=== PATIENT | female | born 1940 | race Caucasian/White ===

== ENCOUNTER → 2016-09-05 | Outpatient (CLI) | payer OTHER, MEDICARE ==
[~2016-09-05] MED LIST: ASPI325T39 PO; ATOR10TA88 PO; PROP80TA2 PO
[2016-09-05 11:19] LABS: BASO % 1.1 %; BASO ABS # 0.05 K/uL (0-0.2); COMPLETE YES; EOS % 2.7 %; HEMATOCRIT 39.5 % (37-47); LYMPH % 20.6 %; LYMPH ABS # 0.98 K/uL (1.2-3.4); MEAN CELL VOLUME 96.8 fL (80-100); MEAN CORPUSCULAR HEMOGLOBIN 30.6 pg (25-34); MEAN CORPUSCULAR HGB CONC 31.6 g/dl (32-36); MEAN PLATELET VOLUME 11.4 fL (7.4-10.4); MONO % 10.7 %; NEUT % 64.9 %; PLATELET COUNT 189 K/uL (130-400); RED BLOOD COUNT 4.08 M/uL (4.2-5.4); WHITE BLOOD COUNT 4.75 K/uL (4.8-10.8)
[2016-09-05 11:39] LABS: ALT/SGPT 70 U/L (12-78); AST/SGOT 38 U/L (15-37); BLOOD UREA NITROGEN 17 mg/dl (7-18); BUN/CREATININE RATIO 24.6 (10-20); CALCIUM 9.1 mg/dl (8.5-10.1); CARBON DIOXIDE 31 mmol/L (21-32); CHLORIDE 105 mmol/L (98-107); CHOLESTEROL 174 mg/dl (0-200); CREATININE 0.68 mg/dl (0.60-1.20); GLUCOSE 87 mg/dl (70-99); SODIUM 139 mmol/L (136-145); TRIGLYCERIDES 51 mg/dl (0-150); VERY LOW DENSITY LIPOPROT CALC 10 mg/dl
[2016-09-05 11:47] LABS: ALKALINE PHOSPHATASE 74 U/L (45-117); HDL CHOLESTEROL 89 mg/dl; LDL CHOLESTEROL CALCULATED 75 mg/dl; THYROID STIMULATING HORMONE 0.696 uIu/ml (0.300-4.500)
== END | disposition home or self-care (01) ==
LOC: C.LABBC 07:58
PROVIDERS: ATTEND Internal Medicine
DX: M85.80 Other specified disorders of bone density and structure, unspecified site (principal); A31.0 Pulmonary mycobacterial infection

== ENCOUNTER → 2016-10-07 | Outpatient (CLI) | payer OTHER, MEDICARE ==
--- NOTE | 2016-10-10 08:00 | MAMMOGRAPHY REPORT ---
BILATERAL DIGITAL SCREENING MAMMOGRAM WITH CAD: 10/07/2016 CLINICAL HISTORY: Routine screening. Patient has no complaints. TECHNIQUE: Current study was also evaluated with a Computer Aided Detection (CAD) system. Bilateral CC and MLO views were obtained. COMPARISON: No prior exams were available for comparison. BREAST COMPOSITION: There are scattered areas of fibroglandular density in both breasts. FINDINGS: No suspicious masses, calcifications, or areas of architectural distortion are noted in ei ther breast. There has been no significant interval change compared to prior exams. IMPRESSION: ACR BI-RADS CATEGORY 1: NEGATIVE There is no mammographic evidence of malignancy. A 1 year screening mammogram is recommended. The pa tient will receive written notification of the results. Approximately 10% of breast cancers are not detected with mammography. A negative mammographic report should not delay biopsy if a clinically suggestive mass is present. Yoana Grace M.D. /:10/07/2016 15:15:37 Cultural Anthropology Professor: Aleah NOVAK(Ori)(Fady)(PARMJIT), [facility] letter sent: Normal 1/2 BI-RADS Code: ACR BI-RADS Category 1: Negative
== END | disposition home or self-care (01) ==
LOC: C.MAMM 14:27
PROVIDERS: ATTEND Internal Medicine
DX: Z12.31 Encounter for screening mammogram for malignant neoplasm of breast (principal)

== ENCOUNTER → 2017-09-13 | Outpatient (CLI) | payer OTHER, MEDICARE ==
[~2017-09-13] MED LIST changes: +ATOR10TA82 PO; -ATOR10TA88 PO
--- NOTE | 2017-09-13 08:26 | DIAGNOSTIC IMAGING REPORT ---
CONTRAST UPPER GI SERIES CLINICAL HISTORY: Esophageal dysphagia. COMPARISON STUDY: None. FLUOROSCOPY TIME: 2.8 minutes. 19 fluoroscopic images were obtained. FINDINGS: Esophageal motility was normal. No esophageal mass or stricture was identified. 13 mm barium tablet passed into the stomach. No reflux was elicited. There is a probable small hiatal hernia. Gastric fold pattern is normal. Duodenum was normal. IMPRESSION: 1. No esophageal mass or stricture. 2. Probable small hiatal hernia. Electronically signed by: Mango Taylor M.D. 09/13/2017 8:24 AM Dictated Date/Time: 09/13/2017 8:23 AM
== END | disposition home or self-care (01) ==
LOC: C.RAD 07:43
PROVIDERS: ATTEND Internal Medicine
DX: R13.10 Dysphagia, unspecified (principal)

== ENCOUNTER → 2017-09-18 | Day surgery (SDC) | payer OTHER, MEDICARE ==
[2017-09-15 14:26] VITALS: Ht 154.9 cm; Wt 47.7 kg
[~2017-09-18] VITALS: Ht 154.9 cm; Wt 47.7 kg
[~2017-09-18] MED LIST changes: +LIDOCAINE HCL 2% 2 ML VIAL (20MG/ML) ONE; +PROPOFOL IV EMULSION 10 MG/ML 20 ML VIAL ONE; +SODIUM CHLORIDE 0.9% 500ML 500 ML IV ONE
--- NOTE | 2017-09-18 12:56 | Endo History and Physical ---
History & Physical Date of Service: Sep 18, 2017. Chief Complaint: dysphagia, hiatal hernia Referring Physician: Dr. Rigoberto Joyce History of Present Illness 77 yo CF who presents for EGD secondary to dysphagia and hiatal hernia. Past Medical History High Cholesterol Past Surgical History Hx Cardiac Surgery: No Hx Internal Defibrillator: No Hx Pacemaker: No Hx Abdominal Surgery: Yes (TUBAL LIGATION) Hx of Implantable Prosthesis: No Hx Post-Op Nausea and Vomiting: No Hx Cancer Surgery: No Hx Thoracic Surgery: Yes (LUNG SURGERY (THOUGHT SHE HAD CANCER, FOUND NOTHING)) Hx Orthopedic: No Hx Urinary Tract Surgery: No Family History None Social History Smoking Status: Former Smoker Hx Substance Use: No Hx Alcohol Use: Yes (1 glass wine with dinner) Allergies Coded Allergies: Clindamycin (Verified Allergy, Mild, rash, 09/18/17) Current Medications Reported Home Medications Medications Dose Route/Sig Max Daily Dose Days Date Category Aspirin Ec (Aspirin) 325 Mg Tab 325 Mg PO DAILY PRN 03/17/15 Reported Lipitor (Atorvastatin Calcium) 10 Mg Tab 1 Tab PO QPM 30 03/17/15 Reported Inderal (Propranolol HCl) 80 Mg Tab 80 Mg PO QAM 03/17/15 Reported Vital Signs Weight (Kilograms): 47.73 Height (Feet): 5 Height (Inches): 1 Date Time Temp Pulse Resp B/P (MAP) Pulse Ox O2 Delivery O2 Flow Rate FiO2 09/18/17 12:04 36.4 50 18 159/85 (109) 99 Room Air Physical Exam General Appearance: WD/WN, no apparent distress Respiratory/Chest: Auscultation: breath sounds normal Cardiovascular: Heart Auscultation: RRR Abdomen: Bowel Sounds: normal Inspection & Palpation: soft, non-distended, no tenderness, guarding & rebound Assessment and Plan Assessment: 77 yo CF who presents for EGD secondary to dysphagia and hiatal hernia. Plan: Proceed with EGD.
--- NOTE | 2017-09-18 13:43 | GI REPORT ---
Patient Name: Jovita Chen Procedure Date: 09/18/2017 12:47 PM Date of : 1940 Admit Type: Outpatient Age: 77 Gender: Female Attending MD: Navid Velazquez DO Procedure: Upper GI endoscopy Providers: Navid Velazquez DO Referring MD: Rigoberto Joyce Indications: Dysphagia Medicines: Monitored Anesthesia Care Complications: No immediate complications. Estimated Blood Loss: Estimated blood loss: none. Procedure: Pre-Anesthesia Assessment: - Prior to the procedure, a History and Physical was performed, and patient medications and allergies were reviewed. The patient's tolerance of previous anesthesia was also reviewed. The risks and benefits of the procedure and the sedation options and risks were discussed with the patient. All questions were answered, and informed consent was obtained. Prior Anticoagulants: The patient has taken aspirin, last dose was 1 day prior to procedure. ASA Grade Assessment: III - A patient with severe systemic disease. After reviewing the risks and benefits, the patient was deemed in satisfactory condition to undergo the procedure. After obtaining informed consent, the endoscope was passed under direct vision. Throughout the procedure, the patient's blood pressure, pulse, and oxygen saturations were monitored continuously. The On-site loaner was introduced through the mouth, and advanced to the second part of duodenum. The upper GI endoscopy was accomplished without difficulty. The patient tolerated the procedure well. Findings: A moderate Schatzki ring (acquired) was found at the gastroesophageal junction. A TTS dilator was passed through the scope. Dilation with an 18-19-20 mm balloon dilator was performed to 18 mm and 19 mm. A small hiatal hernia was present. Six non-bleeding cratered gastric ulcers with no stigmata of bleeding were found in the gastric antrum. The largest lesion was 5 mm in largest dimension. Biopsies were taken with a cold forceps for Helicobacter pylori testing. The examined duodenum was normal. Impression: - Moderate Schatzki ring. Dilated. - Small hiatal hernia. - Non-bleeding gastric ulcers with no stigmata of bleeding. Biopsied. - Normal examined duodenum. Recommendation: - Resume previous diet. - Use Protonix (pantoprazole) 40 mg PO daily. - Await pathology results. - Return to primary care physician as previously scheduled. Navid Velazquez DO 09/18/2017 1:42:41 PM This report has been signed electronically. Note Initiated On: 09/18/2017 12:47 PM Number of Addenda: 0 I attest to the content of the Intraoperative Record and orders documented therein, exceptions below {[id number]}
--- NOTE | 2017-09-18 13:46 | Discharge Instructions ---
Endoscopy Patient Instructions Date / Procedure(s) Performed Sep 18, 2017. EGD Allergy Information Coded Allergies: Clindamycin (Verified Allergy, Mild, rash, 09/18/17) Discharge Date / Findings Sep 18, 2017. Schatzki's Ring s/p dilation Hiatal hernia Gastric ulcers s/p biopsies Medication Instructions 1) Start Protonix 40mg by mouth each morning 1/2 hour prior to breakfast. 2) OK to resume all medications today as prescribed Reported Home Medications Medications Dose Route/Sig Max Daily Dose Days Date Category Aspirin Ec (Aspirin) 325 Mg Tab 325 Mg PO DAILY PRN 03/17/15 Reported Lipitor (Atorvastatin Calcium) 10 Mg Tab 1 Tab PO QPM 30 03/17/15 Reported Inderal (Propranolol HCl) 80 Mg Tab 80 Mg PO QAM 03/17/15 Reported Provider Instructions Activity Restrictions - No exercising or heavy lifting for 24 hours. - Do not drink alcohol the day of the procedure. - Do not drive a car or operate machinery until the day after the procedure. - Do not make any important decisions or sign important papers in 24 hours after the procedure. Following Day: - Return to full activity which may include returning to work/school. Diet Start your diet with liquids and light foods (jello, soup, juice, toast). Then eat your usual diet if not nauseated. Treatment For Common After Affects For mild abdominal pain, bloating, or excessive gas: - Rest - Eat lightly - Lie on right side Follow-Up Information Follow-up with Dr. Rigoberto Joyce as scheduled Anesthesia Information What You Should Know You have had a procedure that required some medicine to reduce anxiety and discomfort. This treatment is called moderate sedation. After receiving the treatment, you may be sleepy, but you will be able to breathe on your own. The effects of the treatment may last for several hours. Follow these instructions along with Activity/Diet recommendations noted above: * Do NOT do anything where dizziness or clumsiness would be dangerous. * Rest quietly at home today, then you can be up and about tomorrow. * Have a responsible person stay with you the rest of today. * You may have had an I.V. today. If so, you may take the dressing off later today. Recommendations Call your doctor if: * Trouble breathing * Continuous vomiting for more than 24 hours * Temperature above 101 degrees * Severe abdominal pain or bloating * Pain not relieved by pain medicine ordered * There is increased drainage or redness from any incision * A large amount of rectal bleeding greater than 2-3 tablespoons. (If you had a polyp/s removed or have hemorrhoids, a small amount of blood - from the rectum is to be expected.) * You have any unanswered questions or concerns. IN THE EVENT OF A SERIOUS EMERGENCY, GO TO THE NEAREST EMERGENCY ROOM Your discharge instructions were prepared by provider Navid Velazquez. Patient Instructions Signature Page Jovita Chen Patient (or Guardian) Signature/Date: I have read and understand the instructions given to me by my caregivers. Caregiver/RN/Doctor Signature/Date: The above-named patient and/or guardian has received patient instructions on this date. + Original Patient Signature Page (only) stays with chart. Please make copy for patient.
[2017-09-18 13:54] VITALS: BP 148/77; PULSE 55; O2SAT 100
--- NOTE | 2017-09-18 14:29 | Anesthesiology Progress Note ---
Anesthesia Post Op Note Date & Time Sep 18, 2017 at 14:28 Vital Signs Pain Intensity: 0 Vital Signs Past 12 Hours Date Time Temp Pulse Resp B/P (MAP) Pulse Ox O2 Delivery O2 Flow Rate FiO2 09/18/17 13:54 55 20 148/77 (100) 100 Room Air 09/18/17 13:39 50 18 137/101 (113) 99 Room Air 09/18/17 13:24 52 16 124/47 (72) 100 Room Air 09/18/17 12:04 36.4 50 18 159/85 (109) 99 Room Air Notes Mental Status: alert / awake / arousable, participated in evaluation Pt Amnestic to Procedure: Yes Nausea / Vomiting: adequately controlled Pain: adequately controlled Airway Patency, RR, SpO2: stable & adequate BP & HR: stable & adequate Hydration State: stable & adequate Anesthetic Complications: no major complications apparent
== END | disposition home or self-care (01) ==
LOC: C.GI 11:29
PROVIDERS: ATTEND Internal Medicine
DX: K22.2 Esophageal obstruction (principal); K44.9 Diaphragmatic hernia without obstruction or gangrene; K25.9 Gastric ulcer, unspecified as acute or chronic, without hemorrhage or perforation; K29.50 Unspecified chronic gastritis without bleeding; Z88.1 Allergy status to other antibiotic agents; I48.91 Unspecified atrial fibrillation; Z87.891 Personal history of nicotine dependence; Z79.82 Long term (current) use of aspirin; Z79.899 Other long term (current) drug therapy

== ENCOUNTER 2021-06-27 12:42 | Inpatient (IN) ==
--- NOTE | 2021-06-27 13:27 | Emergency Department Note ---
History of Present Illness General Chief complaint: Head Injury, Minor Stated complaint: FELL STRIKING R SIDE OF HEAD & BACK Time Seen by Provider: 06/27/21 12:51 Source: patient Mode of arrival: ambulatory Limitations: no limitations History of Present Illness Maximum Pain Intensity: 2 This patient is a 81-year-old female who presents to the emergency department for evaluation of a closed head injury. Patient states that she was at her daughter's house for [employer] [place] and tripped over something, causing her to fall backward and hit the back of her head off of a cabinet. She does not believe that she struck her back, but twisted her back while she fell and now has pain in the low back. She did sustain a laceration to the head. She did not lose consciousness. She reports pain primarily in the low back and reports some mild head pain as well. She rates her discomfort a 2/10. She did not take any pain medicine prior to arrival. Patient does not take any anticoagulants. Home Medications Medication Instructions Recorded Confirmed Type aspirin 81 mg chewable tablet 81 mg PO DAILY 11/07/17 05/17/21 History calcium carb 300 mg-D3 800 1 tab PO DAILY 11/07/17 05/17/21 History unit-mag ox 25 mg-[employer] 0.5 mg-emmy-Zn tablet (Caltrate + D3 Plus Minerals) magnesium oxide 400 mg PO HS 11/07/17 05/17/21 History acetaminophen 500 mg capsule 500 mg PO QID PRN 04/16/19 05/17/21 History cholecalciferol (vitamin D3) 25 25 mcg PO DAILY 04/16/19 05/17/21 History mcg (1,000 unit) chewable tablet (Vitamin D3) vitamin B complex 1 tab PO DAILY 10/16/19 05/17/21 History atorvastatin 10 mg tablet See Rx Instructions .ROUTE 11/25/20 05/17/21 Rx .COMPLEX #90 tab pantoprazole 40 mg tablet,delayed See Rx Instructions .ROUTE 12/09/20 05/17/21 Rx release .COMPLEX #90 tab fluticasone propionate 50 1 - 2 spray INTRANASAL DAILY PRN 03/24/21 05/17/21 History mcg/actuation nasal ml spray,suspension sulfamethoxazole 800 1 tab PO BID 5 Days #10 tab 03/24/21 05/17/21 Rx mg-trimethoprim 160 mg tablet (Bactrim DS) lisinopril 20 mg tablet 20 mg PO DAILY #90 tab 04/26/21 05/17/21 Rx propranolol 80 mg capsule,24 See Rx Instructions .ROUTE 05/17/21 05/17/21 Rx hr,extended release .COMPLEX #90 cap oxycodone 5 mg tablet 5 mg PO Q6H PRN #12 tab 06/27/21 Rx Allergies Allergy/AdvReac Type Severity Reaction Status Date / Time clindamycin Allergy Unknown Verified 05/17/21 10:22 prednisone Allergy Unknown Verified 05/17/21 10:22 Past Med/Surg History Medical History (Updated 06/27/21 @ 16:32 by Elizabeth Lagunas PA-C) Gastric ulcer GERD (gastroesophageal reflux disease) Hyperlipidemia L1 vertebral fracture L5 vertebral fracture Mitral valve prolapse REASON FOR PROPRANOLOL Osteopenia after menopause Peptic ulcer disease PSVT (paroxysmal supraventricular tachycardia) Schatzki's ring Sensorineural hearing loss of both ears Thyroid nodule Surgical History History of bilateral tubal ligation History of bronchoscopy History of cataract surgery History of colonoscopy History of esophagogastroduodenoscopy (EGD) History of tooth extraction Family History Brother Family history of diabetes mellitus Mother Heart disease Father Heart disease Other Hypertension No family history of allergies No family history of bleeding disorder Denies family history of Hearing loss Cancer Stroke Asthma Social History Smoking Status: Never smoker Tobacco Type: Cigarettes Age Started Using Tobacco: 20; Age Quit Using Tobacco: 57; packs per day: 0.25; Years Smoked: 37; Number of Years Since Quit: 20; Second Hand Exposure: No; Hx Alcohol Use: Yes Alcohol type: wine Alcohol Intake Frequency Comment: 4 oz a day with dinner Hx Substance Use: No Preferred Language: Italian Communication Ability: Effective Visual Impairment: Limited Hearing Ability: Normal [employer] Member Required: No Beliefs That Will Affect Care: None marital status: Current Living Situation: Spouse current occupational status: retired How many Children do You have: 2 Feels Safe at Home: Yes Childhood Exposure to Second-Hand Smoke: Yes caffeine: Yes (tea) Dental Care, Regularly: Yes Physical Activity Frequency: Daily Physical Activity Frequency Comment: walk Seatbelt Use: always Sunscreen Use: Yes Assistive Devices: Glasses Review of Systems A total of 10 systems reviewed and were otherwise negative Physical Exam Vital Signs Vital Signs - 24 hr 06/27/21 12:46 06/27/21 15:44 Temperature 36.5 C Temperature Source Temporal Artery Scan Pulse Rate 52 L Pulse Rate [Apical] 50 L Pulse Rhythm [Apical] Regular Respiratory Rate 16 16 Respiratory Depth Normal Blood Pressure 200/74 H Blood Pressure [Left Arm] 188/78 H Blood Pressure Mean 116 Blood Pressure Mean [Left Arm] 114 Pulse Oximetry 96 99 Oxygen Delivery Method Room Air Sepsis Recent Fever Within 48 Hours No Sepsis New/Unexplained Change in Mental Status No Sepsis Action Taken by Nursing No Action Required VITALS: Vitals are noted on the nurse's note and reviewed by myself GENERAL: This is a 81-year-old, in no acute distress, well-developed well- nourished. SKIN: There is a 4 cm linear laceration to the posterior scalp. No active bleeding. HEAD: Normocephalic atraumatic. EARS: External auditory canals clear, tympanic membranes pearly reeves without erythema or effusion bilaterally. No hemotympanum. EYES: Pupils equal round and reactive to light and accommodation. Extraocular movements intact. MOUTH: Mucous membranes moist. Tonsils are not enlarged. Pharynx without erythema or exudate. NECK: Supple without nuchal rigidity. Cervical spine is nontender. HEART: Regular rate and rhythm without murmurs gallops or rubs. LUNGS: Clear to auscultation bilaterally without wheezes, rales or rhonchi. MUSCULOSKELETAL: Mild tenderness to palpation across the lower back. Full range of motion throughout. Strength 5/5 throughout. NEURO: Patient was alert and oriented to person place and time. No focal neurological deficits. Procedures Laceration Scalp laceration: Site: scalp Size (cm): 4 Description: linear Depth: simple, single layer Local Anesthetic: lidocaine 1% Amount of anesthesia used (mL): 5 Pre-repair: wound explored and irrigated extensively Skin layer closed with: other (america) Number of sutures: 4 Course Consultations Consultation #1: Dr. Singh - orthopedic spine Administered Medications Discontinued Medications Lidocaine HCl (Xylocaine 1%/Sod Bicarb 20 Ml Vial) 20 ml INFIL NOW ONE Stop: 06/27/21 13:53 Last Admin: 06/27/21 14:08 Dose: 20 ml Documented by: [id number] Oxycodone HCl (Oxycodone Hcl Ir 5 Mg Tab (Immediate Release)) 5 mg PO NOW STA Stop: 06/27/21 14:14 Last Admin: 06/27/21 14:25 Dose: 5 mg Documented by: [id number] Oxycodone HCl (Oxycodone Ir Home Pack) 1 homepack PO UD ONE Stop: 06/27/21 15:28 Last Admin: 06/27/21 15:43 Dose: Not Given Documented by: [id number] Medical Decision Making Differential Diagnosis Concussion, contusion, fracture, subdural hematoma, epidural hematoma, intraparenchymal hemorrhage, lumbar fracture, as well as other pathologies. Home Medications Current Medication List: was personally reviewed by me Laboratory Data Attestation: I reviewed the patient's lab results. Lab Results 06/27/21 Range/Units 15:45 SARS-CoV-2, RNA, NAAT NEGATIVE (NEGATIVE) Imaging Data Attestation: I personally reviewed and interpreted this imaging study as follows: Radiologist's Impression: Cervical Spine CT 06/27/21 13:00 CT OF THE CERVICAL SPINE WITHOUT CONTRAST CLINICAL HISTORY: fall, head injury COMPARISON STUDY: No previous studies for comparison. TECHNIQUE: Helical axial images of the cervical spine were obtained without IV contrast. Sagittal and coronal reconstructions were viewed. Automated exposure control was utilized for the study. A dose lowering technique was utilized adhering to the principles of ALARA. FINDINGS: Alignment of the cervical spine is anatomic. Vertebral body heights are maintained. No acute cervical spine fracture or subluxation is present. There is no prevertebral edema. Facet joints are intact. Moderate multilevel disc space narrowing, osteophytosis and facet arthrosis is present. Multinodular thyroid gland is noted. This was shown on ultrasound of April 18, 2019. IMPRESSION: No acute cervical spine fracture or subluxation. ACT 112: Negative or not required by law. Electronically signed by: Mango Taylor M.D. 06/27/2021 1:[address] 06/27/21 13:00 CT OF THE HEAD WITHOUT CONTRAST CLINICAL HISTORY: fall, head injury COMPARISON STUDY: No previous studies for comparison. TECHNIQUE: Helical axial images of the head were obtained without IV contrast. Automated exposure control was utilized for the study. A dose lowering technique was utilized adhering to the principles of ALARA. FINDINGS: No acute intracranial hemorrhage, midline shift or mass effect is present. White matter hypodensity suggests small vessel disease. The ventricular system is unremarkable. The basal cisterns are patent. No extra-axial collections are present. There are no findings to suggest acute dural sinus thrombosis or acute territorial infarct. No significant calvarial abnormalities are present. Visualized portions of the sinuses and mastoid air cells are clear. Small left posterior scalp contusion is present. IMPRESSION: 1. No acute intracranial findings. 2. Small left posterior scalp contusion. No calvarial fracture. ACT 112: Negative or not required by law. Electronically signed by: Mango Taylor M.D. 06/27/2021 1:[address] 06/27/21 13:00 CT OF THE LUMBAR SPINE CLINICAL HISTORY: fall, low back pain COMPARISON STUDY: CT of the abdomen and pelvis September 07, 2018. TECHNIQUE: Helical axial images of the lumbar spine were obtained. Sagittal and coronal reconstructions were viewed. Automated exposure control was utilized for the study. A dose lowering technique was utilized adhering to the principles of ALARA. FINDINGS: For purposes of numbering on this exam, the L5-S1 disc space is assigned to axial image 315 of 378. There is an acute fracture involving the superior endplate of L1. There is 20% loss of vertebral body height with 2 mm of retropulsion at the level of the superior endplate. This may technically reflect a subtle burst fracture given disruption of the posterior cortex. Otherwise, vertebral body heights are maintained. There is an age indeterminate nondisplaced fracture of the left transverse process of L5. This has apparent sclerotic margins. Mild levoscoliosis of the lumbar spine is present. Severe multilevel facet arthrosis and severe multilevel disc space narrowing and osteophytosis is present. Central canal and neural foramen are suboptimally assessed by CT. Paravertebral soft tissues are unremarkable. Hepatic cyst is incidentally noted. IMPRESSION: 1. Acute L1 vertebral body fracture, as described above. 20% loss of vertebral body height with minimal retropulsion. Technically, this favors a subtle burst fracture given disruption of the posterior cortex. 2. Nondisplaced fracture of the left transverse processes of L5. This is acute to subacute. ACT 112: Negative or not required by law. Electronically signed by: Mango Taylor M.D. 06/27/2021 1:55 PM MDM Narrative This patient is a 81-year-old female who presents to the emergency department for evaluation of a fall. Patient did sustain a head injury with scalp laceration. CT of the head and cervical spine were unremarkable. Scalp laceration repaired as noted in the procedure section. Patient additionally noted to have low back pain. Lumbar CT was performed and did show an L1 vertebral body fracture as well as an L5 transverse process fracture. I did speak with Dr. Singh who felt this would not be surgical and recommended follow-up for bracing. Patient given a dose of oxycodone here. An ambulatory trial was performed with a walker, unfortunately patient was unable to get around and was not comfortable taking her home. For this reason, patient will require admission and likely eventual placement at a rehabilitation facility. [facility] was consulted and agreed to evaluate the patient for further care. Impression & Plan L1 vertebral fracture, L5 vertebral fracture, Closed head injury, Laceration of scalp Discharge Plan Visit Data Chief Complaint: Head Injury, Minor Stated Complaint: FELL STRIKING R SIDE OF HEAD & BACK ED Provider: Nick Otero ED Midlevel Provider: Elizabeth Lagunas Discharge Problem: L1 vertebral fracture, L5 vertebral fracture, Closed head injury, Laceration of scalp Patient Disposition: Home - Self-Care Condition: Good Discharge Instructions Activity Restrictions/Additional Instructions: You have received 4 america on your scalp. These america are NOT dissolvable and WILL need to be removed by a health care provider in 7-10 days. You can return to the Emergency Department or contact your Primary Care Provider to have these america removed. You may wash the area normally. Apply a thin layer of antibiotic ointment or Vaseline over the america once daily. You were diagnosed with a fracture in your lumbar spine/low back. We discussed the case with Dr. Singh, the local behavior specialist. He will follow-up with you this week. Please call their office tomorrow morning and let them know that you were seen in the ER and that we talked with Dr. Singh. You have been prescribed Oxy IR to be used for pain control. Take 1 tablet ev delio 6 hours as needed for pain. This is a narcotic medication. You cannot drive or consume alcohol while on this medicine. This medicine should only be used for pain that cannot be controlled with elyx-jml-[id number] pain medicines. You may want to consider taking an over the counter stool softener while taking this medication, as it may cause constipation. For pain control, you can use the following eyhy-lul-shxsovg medicines (if >12 yo): - Regular strength (325mg/tab) Tylenol (acetaminophen) 2 tabs every 4-6 hours as needed. Do not exceed 12 tablets in a 24 hour period. Avoid taking more than 4 grams (4000 mg) of Tylenol per day. This includes any other sources of acetaminophen you may take on a regular basis. Return to the emergency department with worsening pain, inability to get around at home, or other new/concerning symptoms. Forms Stand Alone Forms: [facility], Virtual Emergency Department, Important Visit Information Prescriptions Prescriptions: New oxycodone 5 mg tablet 5 mg PO Q6H PRN (Reason: pain) Qty: 12 RF: 0 No Action atorvastatin 10 mg tablet See Rx Instructions .ROUTE .COMPLEX Qty: 90 RF: 3 pantoprazole 40 mg tablet,delayed release (DR/EC) See Rx Instructions .ROUTE .COMPLEX Qty: 90 RF: 3 lisinopril 20 mg tablet 20 mg PO DAILY Qty: 90 RF: 3 propranolol 80 mg capsule,extended release 24 hr See Rx Instructions .ROUTE .COMPLEX Qty: 90 RF: 3 acetaminophen 500 mg capsule 500 mg PO QID PRNRF: 0 cholecalciferol (vitamin D3) [Vitamin D3] 25 mcg (1,000 unit) tablet,chewable 25 mcg PO DAILY RF: 0 Tenivac (PF) 5-2 Lf unit/0.5 mL syringe 0.5 ml IM ONCE Qty: 0.5 RF: 0 vitamin B complex Tablet 1 tab PO DAILY RF: 0 fluticasone propionate 50 mcg/actuation spray,suspension 1 - 2 spray intranasal DAILY PRNRF: 0 sulfamethoxazole-trimethoprim [Bactrim DS] 800-160 mg tablet 1 tab PO BID 5 Days Qty: 10 RF: 0 aspirin 81 mg Tablet,Chewable 81 mg PO DAILY RF: 0 magnesium oxide 400 mg Capsule 400 mg PO HS RF: 0 Caltrate + D3 Plus Minerals 300 mg-800 unit -25 mg-0.5 mg Tablet 1 tab PO DAILY RF: 0 Referrals Referrals: Rigoberto Joyce MD [Primary Care Provider] - Palmer Singh DO [Surgeon] - Discharge Problem: L1 vertebral fracture Qualifiers: Encounter type: initial encounter Fracture type: closed Fracture morphology: burst- stable Qualified Code(s): S32.011A - Stable burst fracture of first lumbar vertebra, initial encounter for closed fracture L5 vertebral fracture Qualifiers: Encounter type: initial encounter Fracture type: closed Fracture morphology: other fracture Qualified Code(s): S32.058A - Other fracture of fifth lumbar vertebra, initial encounter for closed fracture Closed head injury Qualifiers: Encounter type: initial encounter Qualified Code(s): S09.90XA - Unspecified injury of head, initial encounter Laceration of scalp Qualifiers: Encounter type: initial encounter Qualified Code(s): S01.01XA - Laceration without foreign body of scalp, initial encounter
--- NOTE | 2021-06-27 13:41 | CT Scan Report ---
CT OF THE HEAD WITHOUT CONTRAST CLINICAL HISTORY: fall, head injury COMPARISON STUDY: No previous studies for comparison. TECHNIQUE: Helical axial images of the head were obtained without IV contrast. Automated exposure con trol was utilized for the study. A dose lowering technique was utilized adhering to the principles o f ALARA. FINDINGS: No acute intracranial hemorrhage, midline shift or mass effect is present. White matter hyp odensity suggests small vessel disease. The ventricular system is unremarkable. The basal cisterns ar e patent. No extra-axial collections are present. There are no findings to suggest acute dural sinus thrombosis or acute territorial infarct. No significant calvarial abnormalities are present. Visualiz ed portions of the sinuses and mastoid air cells are clear. Small left posterior scalp contusion is p resent. IMPRESSION: 1. No acute intracranial findings. 2. Small left posterior scalp contusion. No calvarial fracture. ACT 112: Negative or not required by law. Electronically signed by: Mango Taylor M.D. 06/27/2021 1:40 PM
--- NOTE | 2021-06-27 13:46 | CT Scan Report ---
CT OF THE CERVICAL SPINE WITHOUT CONTRAST CLINICAL HISTORY: fall, head injury COMPARISON STUDY: No previous studies for comparison. TECHNIQUE: Helical axial images of the cervical spine were obtained without IV contrast. Sagittal a nd coronal reconstructions were viewed. Automated exposure control was utilized for the study. A do se lowering technique was utilized adhering to the principles of ALARA. FINDINGS: Alignment of the cervical spine is anatomic. Vertebral body heights are maintained. No acut e cervical spine fracture or subluxation is present. There is no prevertebral edema. Facet joints are intact. Moderate multilevel disc space narrowing, osteophytosis and facet arthrosis is present. Mul tinodular thyroid gland is noted. This was shown on ultrasound of April 18, 2019. IMPRESSION: No acute cervical spine fracture or subluxation. ACT 112: Negative or not required by law. Electronically signed by: Mango Taylor M.D. 06/27/2021 1:43 PM
[2021-06-27] MEDS ORDERED: XYLOCAINE 1%/SOD BICARB 20 ML VIAL INFIL ONE (13:52)
--- NOTE | 2021-06-27 13:57 | CT Scan Report ---
CT OF THE LUMBAR SPINE CLINICAL HISTORY: fall, low back pain COMPARISON STUDY: CT of the abdomen and pelvis September 07, 2018. TECHNIQUE: Helical axial images of the lumbar spine were obtained. Sagittal and coronal reconstruct ions were viewed. Automated exposure control was utilized for the study. A dose lowering technique was utilized adhering to the principles of ALARA. FINDINGS: For purposes of numbering on this exam, the L5-S1 disc space is assigned to axial image 315 of 378. There is an acute fracture involving the superior endplate of L1. There is 20% loss of verte bral body height with 2 mm of retropulsion at the level of the superior endplate. This may technicall y reflect a subtle burst fracture given disruption of the posterior cortex. Otherwise, vertebral body heights are maintained. There is an age indeterminate nondisplaced fracture of the left transverse p rocess of L5. This has apparent sclerotic margins. Mild levoscoliosis of the lumbar spine is present. Severe multilevel facet arthrosis and severe multilevel disc space narrowing and osteophytosis is pr esent. Central canal and neural foramen are suboptimally assessed by CT. Paravertebral soft tissues a re unremarkable. Hepatic cyst is incidentally noted. IMPRESSION: 1. Acute L1 vertebral body fracture, as described above. 20% loss of vertebral body height with minim al retropulsion. Technically, this favors a subtle burst fracture given disruption of the posterior c ortex. 2. Nondisplaced fracture of the left transverse processes of L5. This is acute to subacute. ACT 112: Negative or not required by law. Electronically signed by: Mango Taylor M.D. 06/27/2021 1:55 PM
[2021-06-27] MEDS ORDERED: oxyCODONE HCL IR 5 MG TAB (IMMEDIATE RELEASE) PO STA (14:13)
--- NOTE | 2021-06-27 14:53 | Emergency Department Note ---
ED Visit Note Physician Evaluation Note: I have personally evaluated and examined this patient. I agree with assessment and plan of Elizabeth Lagunas PA-C. 81-year-old female slipped and fell while at [employer] this morning. Mechanical in nature. Head injury already closed with america by [employer]. Imaging reviewed reveals lumbar fractures. Patient stable no neurologic deficits and main complaint is discomfort with movement. Plan will be pain control and see how she manages. [facility] already aware and will follow-up as outpatient. I was consulted by the Advanced Practice Provider. I saw the patient personally and performed a substantive portion of the visit. This includes aspects of the HPI, MDM, diagnostic interpretations, and disposition/plan. Nick Otero MD
[2021-06-27] MEDS ORDERED: oxyCODONE IR HOME PACK PO ONE (15:27)
--- NOTE | 2021-06-27 15:56 | History & Physical Report ---
Date of Service June 27, 2021 Assessment & Plan (1) Fall: Plan: Mechanical fall while tripping over a step Resulted in laceration to posterior occiput and L1 vertebral burst fracture and L5 transverse process fracture PT/OT consults placed (2) L1 vertebral fracture: Plan: With L1 vertebral burst fracture with 20% loss of height and mild retropulsion This is a pathologic osteoporotic fracture due to fall from standing height No focal neurological deficits Consult orthopedic spine surgery although most likely conservative care Consult orthotics for TLSO brace Continue oxycodone 5 mg p.o. every 4 hours as needed moderate to severe pain, Tylenol as needed for mild pain Start lidocaine patch to the lower back PT/OT consults Recommend DEXA scan if not done recently as an outpatient and appropriate treatment for osteoporosis as needed (3) L5 vertebral fracture: Plan: Left transverse process fracture, age-indeterminate Conservative management Pain control (4) Laceration of head: Plan: Now status post [address] Consult wound care Will need staple removal in 5 to 7 days Keep area clean (5) Osteopenia after menopause: Plan: Continue calcium and vitamin D (6) Hypertension: Plan: Blood pressure is quite elevated here likely secondary to pain response Asymptomatic Control pain Can give IV hydralazine 5 mg IV every 6 hours as needed SBP greater than 180 Continue home lisinopril and propranolol (7) PSVT (paroxysmal supraventricular tachycardia): Plan: No acute issues Continue home propranolol (8) Thyroid nodule: Plan: Followed by PCP, most recent TSH normal Follow as an outpatient (9) GERD (gastroesophageal reflux disease): Plan: No acute issues Continue Protonix (10) Hyperlipidemia: Plan: Continue atorvastatin Plan: DVT prophylaxis-SCDs Disposition-admit to medical/surgical unit PT/OT consults placed, may need rehab placement if unable to ambulate independently History of Present Illness Chief Complaint: Fall, head lac,lower back pain Primary Care Provider: Rigoberto Joyce MD This pt is a 81 yo female with a h/o HTN, PSVT, GERD w/ Schatzki's ring, HL, osteopenia, thyroid nodules, who presents to the ER after falling and sustaining a laceration to her head and having lower back pain. SHe was at her daughter's house for Mother's Day clara and tripped while stepping up a small ledge from the dining room to the kitchen and fell, striking her head on a cabinet and she twisted her back prior to landing on the floor. In the ER, she was found to have a lac to the back of her head which was stapled x4, neg head CT and Cervical spine CT, but had a burst fracture of L1 with 20% loss of height and mild retropulsion and a left transverse process fracture of L5. Dr. Singh of [facility] was contacted who said no surgical intervention was needed, and that outpt f/u for back brace could be arranged. However, the patient was attempting to ambulate and her did not feel she would be safe to return home. She received a dose of oxycodone in the ER and after about an hour felt some improv ement in her lower back pain. She denies chest pains or shortness of breath, no other pains anywhere else, only occasional mild intermittent headache. Had some nausea with standing up to go to the bathroom but that is now resolved. No abdominal pains. No recent fevers or chills. She will be brought in for pain control, eval by Orthopedic Surgery and fitted for a TLSO brace with orthotics. Also will need eval for placement at rehab by PT/OT. Allergies Allergy/AdvReac Type Severity Reaction Status Date / Time clindamycin Allergy Unknown Verified 05/17/21 10:22 prednisone Allergy Unknown Verified 05/17/21 10:22 Home Medications Medication Instructions Recorded Confirmed Type aspirin 81 mg chewable tablet 81 mg PO DAILY 11/07/17 05/17/21 History calcium carb 300 mg-D3 800 1 tab PO DAILY 11/07/17 05/17/21 History unit-mag ox 25 mg-copy room technician 0.5 mg-emmy-Zn tablet (Caltrate + D3 Plus Minerals) magnesium oxide 400 mg PO HS 11/07/17 05/17/21 History acetaminophen 500 mg capsule 500 mg PO QID PRN 04/16/19 05/17/21 History cholecalciferol (vitamin D3) 25 25 mcg PO DAILY 04/16/19 05/17/21 History mcg (1,000 unit) chewable tablet (Vitamin D3) vitamin B complex 1 tab PO DAILY 10/16/19 05/17/21 History atorvastatin 10 mg tablet See Rx Instructions .ROUTE 11/25/20 05/17/21 Rx .COMPLEX #90 tab pantoprazole 40 mg tablet,delayed See Rx Instructions .ROUTE 12/09/20 05/17/21 Rx release .COMPLEX #90 tab fluticasone propionate 50 1 - 2 spray INTRANASAL DAILY PRN 03/24/21 05/17/21 History mcg/actuation nasal ml spray,suspension sulfamethoxazole 800 1 tab PO BID 5 Days #10 tab 03/24/21 05/17/21 Rx mg-trimethoprim 160 mg tablet (Bactrim DS) lisinopril 20 mg tablet 20 mg PO DAILY #90 tab 04/26/21 05/17/21 Rx propranolol 80 mg capsule,24 See Rx Instructions .ROUTE 05/17/21 05/17/21 Rx hr,extended release .COMPLEX #90 cap oxycodone 5 mg tablet 5 mg PO Q6H PRN #12 tab 06/27/21 Rx Past Med/Surg History Medical History (Updated 06/27/21 @ 16:32 by Elizabeth Lagunas PA-C) Gastric ulcer GERD (gastroesophageal reflux disease) Hyperlipidemia L1 vertebral fracture L5 vertebral fracture Mitral valve prolapse REASON FOR PROPRANOLOL Osteopenia after menopause Peptic ulcer disease PSVT (paroxysmal supraventricular tachycardia) Schatzki's ring Sensorineural hearing loss of both ears Thyroid nodule Surgical History History of bilateral tubal ligation History of bronchoscopy History of cataract surgery History of colonoscopy History of esophagogastroduodenoscopy (EGD) History of tooth extraction Family History Brother Family history of diabetes mellitus Mother Heart disease Father Heart disease Other Hypertension No family history of allergies No family history of bleeding disorder Denies family history of Hearing loss Cancer Stroke Asthma Social History Smoking Status: Never smoker Tobacco Type: Cigarettes Age Started Using Tobacco: 20; Age Quit Using Tobacco: 57; packs per day: 0.25; Years Smoked: 37; Number of Years Since Quit: 20; Second Hand Exposure: No; Hx Alcohol Use: Yes Alcohol type: wine Alcohol Intake Frequency Comment: 4 oz a day with dinner Hx Substance Use: No Preferred Language: Croatian Communication Ability: Effective Visual Impairment: Limited Hearing Ability: Normal Brand Protection Manager Required: No Beliefs That Will Affect Care: None marital status: Current Living Situation: Spouse current occupational status: retired How many Children do You have: 2 Other Information That Helps Us Care for You: No Feels Safe at Home: Yes Childhood Exposure to Second-Hand Smoke: Yes caffeine: Yes (tea) Dental Care, Regularly: Yes Physical Activity Frequency: Daily Physical Activity Frequency Comment: walk Seatbelt Use: always Sunscreen Use: Yes Assistive Devices: None Review of Systems Review of Systems: All systems reviewed & are unremarkable except as noted in HPI & below Physical Exam Constitutional: WD/WN, vitals as above Eyes: PERRL, conjunctivae normal, anicteric sclerae EOM intact bilaterally ENMT: external ear and nose normal, oropharynx normal Ears: no EAC abnormality and no TM abnormality Nose: no external nose abnormality, no septum abnormality and no nasal discharge Posterior occiput with small vertical laceration with [address], no active bleeding Neck: trachea midline, no thyromegaly Respiratory: normal respiratory effort, lungs clear to auscultation Cardiovascular: RRR, no murmur, no edema Chest (Breasts): Chest: normal inspection of chest Gastrointestinal (Abdomen): normal bowel sounds, soft, nontender, no hepatosplenomegaly Musculoskeletal: Extremities: extremities normal to inspection; no cyanosis and no clubbing No tenderness to palpation over lumbar spinous processes or lumbar paraspinous muscles Skin: no rashes, warm and dry (1 small abrasion over left knee) Neurologic: PERRL, EOMI, accommodation nl, no face palsy, no dysarthria moves all extremities and awake; no focal motor deficits Motor/Sensory: no tremor and no sensory deficit (Intact lower extremity light touch bilaterally) Psychiatric: A+Ox3, euthymic affect Lymphatic: no lymphedema Results & Data Results & Data ([facility]) Vital Signs (Past 12 Hours) Vital Signs Temp Pulse Pulse Resp BP BP Pulse Ox 06/27/21 15:44 50 L 16 188/78 H 99 06/27/21 12:46 36.5 C 52 L 16 200/74 H 96 Laboratory Results 06/27/21 Range/Units 15:45 SARS-CoV-2, RNA, NAAT Pending Diagnostic Findings Cervical Spine CT 06/27/21 13:00 CT OF THE CERVICAL SPINE WITHOUT CONTRAST CLINICAL HISTORY: fall, head injury COMPARISON STUDY: No previous studies for comparison. TECHNIQUE: Helical axial images of the cervical spine were obtained without IV contrast. Sagittal and coronal reconstructions were viewed. Automated exposure control was utilized for the study. A dose lowering technique was utilized adhering to the principles of ALARA. FINDINGS: Alignment of the cervical spine is anatomic. Vertebral body heights are maintained. No acute cervical spine fracture or subluxation is present. There is no prevertebral edema. Facet joints are intact. Moderate multilevel disc space narrowing, osteophytosis and facet arthrosis is present. Multinodular thyroid gland is noted. This was shown on ultrasound of April 18, 2019. IMPRESSION: No acute cervical spine fracture or subluxation. ACT 112: Negative or not required by law. Electronically signed by: Mango Taylor M.D. 06/27/2021 1:[address] 06/27/21 13:00 CT OF THE HEAD WITHOUT CONTRAST CLINICAL HISTORY: fall, head injury COMPARISON STUDY: No previous studies for comparison. TECHNIQUE: Helical axial images of the head were obtained without IV contrast. Automated exposure control was utilized for the study. A dose lowering techniq ue was utilized adhering to the principles of ALARA. FINDINGS: No acute intracranial hemorrhage, midline shift or mass effect is present. White matter hypodensity suggests small vessel disease. The ventricular system is unremarkable. The basal cisterns are patent. No extra-axial collections are present. There are no findings to suggest acute dural sinus thrombosis or acute territorial infarct. No significant calvarial abnormalities are present. Visualized portions of the sinuses and mastoid air cells are clear. Small left posterior scalp contusion is present. IMPRESSION: 1. No acute intracranial findings. 2. Small left posterior scalp contusion. No calvarial fracture. ACT 112: Negative or not required by law. Electronically signed by: Mango Taylor M.D. 06/27/2021 1:[address] 06/27/21 13:00 CT OF THE LUMBAR SPINE CLINICAL HISTORY: fall, low back pain COMPARISON STUDY: CT of the abdomen and pelvis September 07, 2018. TECHNIQUE: Helical axial images of the lumbar spine were obtained. Sagittal and coronal reconstructions were viewed. Automated exposure control was utilized for the study. A dose lowering technique was utilized adhering to the principles of ALARA. FINDINGS: For purposes of numbering on this exam, the L5-S1 disc space is assigned to axial image 315 of 378. There is an acute fracture involving the superior endplate of L1. There is 20% loss of vertebral body height with 2 mm of retropulsion at the level of the superior endplate. This may technically reflect a subtle burst fracture given disruption of the posterior cortex. Otherwise, vertebral body heights are maintained. There is an age indeterminate nondisplaced fracture of the left transverse process of L5. This has apparent sclerotic margins. Mild levoscoliosis of the lumbar spine is present. Severe multilevel facet arthrosis and severe multilevel disc space narrowing and osteophytosis is present. Central canal and neural foramen are suboptimally assessed by CT. Paravertebral soft tissues are unremarkable. Hepatic cyst is incidentally noted. IMPRESSION: 1. Acute L1 vertebral body fracture, as described above. 20% loss of vertebral body height with minimal retropulsion. Technically, this favors a subtle burst fracture given disruption of the posterior cortex. 2. Nondisplaced fracture of the left transverse processes of L5. This is acute to subacute. ACT 112: Negative or not required by law. Electronically signed by: Mango Taylor M.D. 06/27/2021 1:55 PM Code Status & VTE Plan Code Status Full code VTE Prophylaxis Plan VTE Prophylaxis will be ordered: Yes PG Care Time/CCT Total # of Minutes Spent Total Time Spent with Patient: Total time spent is greater than 50% in coordination of care (as documented) at patient's floor/unit and/or counseling patient: Coding Level of Care Code 00824 Initial Inpt Care Lvl 3 Diagnoses Hypertension I10 PSVT (paroxysmal supraventricular tachycardia) I47.1 Thyroid nodule E04.1 GERD (gastroesophageal reflux disease) K21.9 Hyperlipidemia E78.5 Osteopenia after menopause M85.80 L1 vertebral fracture S32.019A L5 vertebral fracture S32.059A Laceration of head S01.91XA Fall W19.XXXA
[2021-06-27 16:29] LABS: Hematocrit (blood only) 38.3 % (37-47); Hemoglobin 12.7 g/dL (12.0-16.0); Mean Corpuscular Hemoglobin 32.2 pg (25-34); Mean Corpuscular Hgb Conc 33.2 g/dL (32-36); Mean Corpuscular Volume 97.2 fL (80-100); Mean Platelet Volume 10.5 fL (7.4-10.4); Platelet Count 197 K/uL (130-400); RDW Coefficient of Variation 13.7 % (11.5-14.5); RDW Standard Deviation 49.3 fL (36.4-46.3); Red Blood Count 3.94 M/uL (4.2-5.4); White Blood Count 9.57 K/uL (4.8-10.8)
[2021-06-27 16:47] LABS: Alanine Aminotransferase 25 U/L (7-52); Albumin Globulin Ratio 1.2 (0.9-2); Alkaline Phosphatase 71 U/L (34-104); Anion Gap 5 (3-11); Aspartate Aminotransferase 24 U/L (13-39); BUN Creatinine Ratio 21.1 (10-20); Bilirubin,Total 0.6 mg/dl (0.2-1.0); Blood Urea Nitrogen 12 mg/dl (6-23); Calcium 9.1 mg/dl (8.5-10.1); Carbon Dioxide 29 mmol/L (21-32); Chloride 102 mmol/L (98-107); Est GFR (African American) 102.2 ml/min; Est GFR (Non-African American) 88.2 ml/min; Globulin 3.3 gm/dl (2.5-4.0); Glucose 102 mg/dl (70-99(Fasting)); Potassium 3.7 mmol/L (3.5-5.1); Sodium 136 mmol/L (136-145); Total Protein 7.3 gm/dl (6.0-8.3)
[2021-06-27 16:48] LABS: Basophils # (auto) 0.03 K/uL (0-0.2); Basophils % (auto) 0.3 %; Eosinophils # (auto) 0.06 K/uL (0-0.5); Eosinophils % (auto) 0.6 %; Immature Granulocytes # (auto) 0.04 K/uL (0.00-0.02); Immature Granulocytes % (auto) 0.4 %; Lymphocytes # (auto) 0.77 K/uL (1.2-3.4); Monocytes # (auto) 0.66 K/uL (0.11-0.59); Monocytes % (auto) 6.9 %; Neutrophils # (auto) 8.01 K/uL (1.4-6.5); Neutrophils % (auto) 83.8 %
[2021-06-27] MEDS ORDERED: ACETAMINOPHEN 325 MG TAB PO PRN (17:52)
[2021-06-27] MEDS ORDERED: oxyCODONE HCL IR 5 MG TAB (IMMEDIATE RELEASE) PO PRN (17:52)
[2021-06-27] MEDS ORDERED: ALUMINUM/MAGNESIUM SUSP 30 ML UDC PO PRN (17:52)
[2021-06-27] MEDS ORDERED: hydrALAZINE HCL 20 MG/ML VIAL IV PRN (17:52)
[2021-06-27] MEDS ORDERED: MAGNESIUM HYDROXIDE SUSP 30 ML UDC PO PRN (17:52)
[2021-06-27] MEDS ORDERED: POLYETHYLENE (MIRALAX) 17 GM PACK PO PRN (17:52)
[2021-06-27] MEDS ORDERED: ONDANSETRON INJ 2 MG/ML 2 ML VIAL IV PRN (17:52)
[2021-06-27] MEDS: LIDOCAINE 5% 1 PATCH TD SCH (18:48)
[2021-06-28] MEDS: LIDOCAINE 5% 1 PATCH TD SCH (08:14)
[2021-06-28] MEDS ORDERED: lisinopril 20 MG TAB PO SCH (09:00)
[2021-06-28] MEDS ORDERED: PROPRANOLOL HCL LA 80 MG CAPCR PO SCH (09:00)
[2021-06-28] MEDS ORDERED: ATORVASTATIN 10 MG TAB PO SCH (09:00)
[2021-06-28] MEDS ORDERED: CHOLECALCIFEROL 1,000 UNITS 25 MCG TAB PO SCH (09:00)
[2021-06-28] MEDS ORDERED: PANTOprazole 40 MG TAB PO SCH (09:00)
--- NOTE | 2021-06-28 09:49 | Consultation ---
Date of Consultation June 28, 2021 Assessment & Plan (1) L1 vertebral fracture: Dr. Singh has reviewed imaging as well as history. Patient's pain is well controlled. We Will treat this conservatively. I have ordered a TLSO brace to be worn at all times with the exception of bathing. Recommend lifting no greater than 5 pounds. Ambulate ad adelaida. We will follow her up in the office in about 2 weeks. Thank you for this consult. History of Present Illness Reason for Consultation: L1 Fracture Attending Physician: Gab Del Rio History of Present Illness This is a pleasant 81yo female who presented to the ED yesterday after a fall. She was at her daughter's home celebrating Mother's Day, when she missed a small step and fell. She hit her head, sustained a posterior scalp laceration, but denies losing consciousness. Her family brought her to the ED for evaluation and subsequent admission. Currently, she has upper lumbar pain only. Denies any radicular pain, paresthesia, numbness. At home, she ambulates independently. Pain seems to be controlled in the hospital currently. Allergies Allergy/AdvReac Type Severity Reaction Status Date / Time clindamycin Allergy Unknown Verified 05/17/21 10:22 prednisone Allergy Unknown Verified 05/17/21 10:22 Home Medications Medication Instructions Recorded Confirmed Type aspirin 81 mg chewable tablet 81 mg PO DAILY 11/07/17 05/17/21 History calcium carb 300 mg-D3 800 1 tab PO DAILY 11/07/17 05/17/21 History unit-mag ox 25 mg-copper miner blasting 0.5 mg-emmy-Zn tablet (Caltrate + D3 Plus Minerals) magnesium oxide 400 mg PO HS 11/07/17 05/17/21 History acetaminophen 500 mg capsule 500 mg PO QID PRN 04/16/19 05/17/21 History cholecalciferol (vitamin D3) 25 25 mcg PO DAILY 04/16/19 05/17/21 History mcg (1,000 unit) chewable tablet (Vitamin D3) vitamin B complex 1 tab PO DAILY 10/16/19 05/17/21 History atorvastatin 10 mg tablet See Rx Instructions .ROUTE 11/25/20 05/17/21 Rx .COMPLEX #90 tab pantoprazole 40 mg tablet,delayed See Rx Instructions .ROUTE 12/09/20 05/17/21 Rx release .COMPLEX #90 tab fluticasone propionate 50 1 - 2 spray INTRANASAL DAILY PRN 03/24/21 05/17/21 History mcg/actuation nasal ml spray,suspension sulfamethoxazole 800 1 tab PO BID 5 Days #10 tab 03/24/21 05/17/21 Rx mg-trimethoprim 160 mg tablet (Bactrim DS) lisinopril 20 mg tablet 20 mg PO DAILY #90 tab 04/26/21 05/17/21 Rx propranolol 80 mg capsule,24 See Rx Instructions .ROUTE 05/17/21 05/17/21 Rx hr,extended release .COMPLEX #90 cap oxycodone 5 mg tablet 5 mg PO Q6H PRN #12 tab 06/27/21 Rx Patient History Medical History Gastric ulcer GERD (gastroesophageal reflux disease) Hyperlipidemia L1 vertebral fracture L5 vertebral fracture Mitral valve prolapse REASON FOR PROPRANOLOL Osteopenia after menopause Peptic ulcer disease PSVT (paroxysmal supraventricular tachycardia) Schatzki's ring Sensorineural hearing loss of both ears Thyroid nodule Surgical History History of bilateral tubal ligation History of bronchoscopy History of cataract surgery History of colonoscopy History of esophagogastroduodenoscopy (EGD) History of tooth extraction Family History Brother Family history of diabetes mellitus Mother Heart disease Father Heart disease Other Hypertension No family history of allergies No family history of bleeding disorder Denies family history of Hearing loss Cancer Stroke Asthma Social History Smoking Status: Never smoker Tobacco Type: Cigarettes Age Started Using Tobacco: 20; Age Quit Using Tobacco: 57; packs per day: 0.25; Years Smoked: 37; Number of Years Since Quit: 20; Second Hand Exposure: No; Hx Alcohol Use: Yes Alcohol type: wine Alcohol Intake Frequency Comment: 4 oz a day with dinner Hx Substance Use: No Preferred Language: Latvian Communication Ability: Effective Visual Impairment: Limited Hearing Ability: Normal Plate Hanger Required: No Beliefs That Will Affect Care: None marital status: Current Living Situation: Spouse current occupational status: retired How many Children do You have: 2 Other Information That Helps Us Care for You: No Feels Safe at Home: Yes Childhood Exposure to Second-Hand Smoke: Yes caffeine: Yes (tea) Dental Care, Regularly: Yes Physical Activity Frequency: Daily Physical Activity Frequency Comment: walk Seatbelt Use: always Sunscreen Use: Yes Assistive Devices: None Review of Systems Review of Systems: All systems reviewed & are unremarkable except as noted in HPI & below Physical Exam Physical Exam: Initially seen ambulating and doing steps with physical therapy. no acute distress no lumbar lacerations or eccymosis 5/5 motor strength b/l lower extremities nontender to palpation over midline thoracic and lumbar spine Results & Data ([facility]) Vital Signs (Past 12 Hours) Vital Signs Temp Pulse Pulse Resp BP Pulse Ox 06/28/21 08:02 37.0 C 56 L 16 141/67 H 96 06/27/21 23:30 36.6 C 99 H 18 153/83 H 95 Diagnostic Findings [place], [place] [phone] CT Scan Report Patient:DIANA GARCÍA Admit Date:06/27/21 MR#:[id number] Address1:[address] [place] [address] Acct ID:[id number] Address2: Date:1940 [facility] Zip:[place] [address] Age:81 Location:ED Sex:F Room/Bed: Att Phy: Diagnosis:FELL STRIKING R SIDE OF HEAD & BACK Graciela Phy:Rigoberto Joyce MD Service Date:06/27/21 [facility] Phy: Interpreting Phy:Mango Taylor MDAdmit Phy: Ordering Phy:Elizabeth Lagunas PA-C cc: ~ CT OF THE LUMBAR SPINE CLINICAL HISTORY: fall, low back pain COMPARISON STUDY: CT of the abdomen and pelvis September 07, 2018. TECHNIQUE: Helical axial images of the lumbar spine were obtained. Sagittal and coronal reconstructions were viewed. Automated exposure control was utilized for the study. A dose lowering technique was utilized adhering to the principles of ALARA. FINDINGS: For purposes of numbering on this exam, the L5-S1 disc space is assigned to axial image 315 of 378. There is an acute fracture involving the superior endplate of L1. There is 20% loss of vertebral body height with 2 mm of retropulsion at the level of the superior endplate. This may technically reflect a subtle burst fracture given disruption of the posterior cortex. Otherwise, vertebral body heights are maintained. There is an age indeterminate nondisplaced fracture of the left transverse process of L5. This has apparent sclerotic margins. Mild levoscoliosis of the lumbar spine is present. Severe multilevel facet arthrosis and severe multilevel disc space narrowing and osteophytosis is present. Central canal and neural foramen are suboptimally assessed by CT. Paravertebral soft tissues are unremarkable. Hepatic cyst is incidentally noted. IMPRESSION: 1. Acute L1 vertebral body fracture, as described above. 20% loss of vertebral body height with minimal retropulsion. Technically, this favors a subtle burst fracture given disruption of the posterior cortex. 2. Nondisplaced fracture of the left transverse processes of L5. This is acute to subacute. ACT 112: Negative or not required by law. Electronically signed by: Mango Taylor M.D. 06/27/2021 1:55 PM Dictated:06/27/21 1345 Transcribed: 06/27/21 1345 (1) L1 vertebral fracture Encounter type: initial encounter Fracture morphology: burst- stable Fracture type: closed Qualified Code(s): S32.011A - Stable burst fracture of first lumbar vertebra, initial encounter for closed fracture
[2021-06-28] MEDS ORDERED: DIPHTHERIA/TETANUS/PERTUSSIS 0.5 ML SYR/VIAL IM ONE (14:48)
--- NOTE | 2021-06-28 17:08 | Discharge Summary ---
Date of Service June 28, 2021 Admission HPI Per Admitting Provider This pt is a 81 yo female with a h/o HTN, PSVT, GERD w/ Schatzki's ring, HL, osteopenia, thyroid nodules, who presents to the ER after falling and sustaining a laceration to her head and having lower back pain. SHe was at her daughter's house for [employer] and tripped while stepping up a small ledge from the dining room to the kitchen and fell, striking her head on a cabinet and she twisted her back prior to landing on the floor. In the ER, she was found to have a lac to the back of her head which was stapled x4, neg head CT and Cervical spine CT, but had a burst fracture of L1 with 20% loss of height and mild retropulsion and a left transverse process fracture of L5. Dr. Singh of [facility] was contacted who said no surgical intervention was needed, and that outpt f/u for back brace could be arranged. However, the patient was attempting to ambulate and her did not feel she would be safe to return home. She received a dose of oxycodone in the ER and after about an hour felt some impro vement in her lower back pain. She denies chest pains or shortness of breath, no other pains anywhere else, only occasional mild intermittent headache. Had some nausea with standing up to go to the bathroom but that is now resolved. No abdominal pains. No recent fevers or chills. She will be brought in for pain control, eval by Orthopedic Surgery and fitted for a TLSO brace with orthotics. Also will need eval for placement at rehab by PT/OT. Principal Diagnosis 1. Fall 2. L1 Vertebral Fracture- nonsurgical) 3. Scalp Laceration- s/p staple. NEED REMOVED within ~7 days Discharge Exam General: Resting comfortably in [his/her] [hospital bed/bedside chair]. [NAD.] HEENT: [Head is AT/NC.][Buccal mucosa is moist and pink] Neck:[No JVD.][Negative hepatojugular reflex] Cardiac:[RRR][without M/G/R] Lungs:[CTA][without W/R/R] Abdomen:[Normoactive X4.][Soft and nontender in all quadrants.] Extremities: [No peripheral clubbing cyanosis or edema] Neuro:[A&O X4.][cranial nerves II through XII are grossly intact.][No focal neuro deficits] Skin:[No obvious skin lesions or rashes] Psych:[appropriate affect.][pleasant and cooperative] Discharge Data Allergies Allergy/AdvReac Type Severity Reaction Status Date / Time clindamycin Allergy Unknown Verified 06/30/21 10:23 prednisone Allergy Unknown Verified 06/30/21 10:23 Consultations 06/27/21 16:19 ED Decision to Admit Stat 06/27/21 17:52 Consult Orthopedic Surgery Routine Assessment & Plan (1) L1 vertebral fracture: Dr. Singh has reviewed imaging as well as history. Patient's pain is well controlled. We Will treat this conservatively. I have ordered a TLSO brace to be worn at all times with the exception of bathing. Recommend lifting no greater than 5 pounds. Ambulate ad adelaida. We will follow her up in the office in about 2 weeks. Thank you for this consult. 06/28/21 14:53 Consult [facility] bibliographic services specialist Routine Ordered Studies 06/27/21 13:00 CT cervical spine wo con Stat IMPRESSION: No acute cervical spine fracture or subluxation. CT head/brain wo con Stat IMPRESSION: 1. No acute intracranial findings. 2. Small left posterior scalp contusion. No calvarial fracture. CT lumbar spine wo con Stat IMPRESSION: 1. Acute L1 vertebral body fracture, as described above. 20% loss of vertebral body height with minimal retropulsion. Technically, this favors a subtle burst fracture given disruption of the posterior cortex. 2. Nondisplaced fracture of the left transverse processes of L5. This is acute to subacute. Hospital Course (1) Fall: Mechanical fall while tripping over a step Resulted in laceration to posterior occiput and L1 vertebral burst fracture and L5 transverse process fracture-- see below (2) L1 vertebral fracture: With L1 vertebral burst fracture with 20% loss of height and mild retropulsion This is a pathologic osteoporotic fracture due to fall from standing height No focal neurological deficits Spine surgeon consultedappreciate recommendations (recommendations are for TLSO brace and pain management) Continue pain management with oxycodone. Patient tolerating this without ill effects Add calcitonin nasal spray Has since been seen by PT/OT. Patient independent. No added recommendations needed for home. (3) L5 vertebral fracture: Left transverse process fracture, age-indeterminate Conservative management Pain control (4) Laceration of head: Now status post [address] Will need staple removal ~7 days Keep area clean Tdap updated prior to discharge (5) Osteopenia after menopause: Continue calcium and vitamin D (6) Hypertension: Blood pressure is quite elevated here likely secondary to pain response Asymptomatic Control pain Continue home lisinopril and propranolol. Most recent BP 147/75 (which is acceptable). Follow-up with PCP (7) PSVT (paroxysmal supraventricular tachycardia): No acute issues Continue home propranolol (8) Thyroid nodule: Followed by PCP, most recent TSH normal Follow as an outpatient (9) GERD (gastroesophageal reflux disease): No acute issues Continue Protonix (10) Hyperlipidemia: Continue atorvastatin DC to home. Seen by PT/OT who did notes no added needs, no need for home health services at this time. Total Time Total Time Spent Total Time Spent (In Minutes): 30 minutes Discharge Plan Discharge Items Patient Disposition: Home - Self-Care Reason For Visit: FALL, LUMBAR FRACTURE Discharge Diagnosis: 1. Fall 2. L1 Vertebral Fracture- nonsurgical) 3. Scalp Laceration- s/p staple. 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 Appointment address will be: [address] [place] [address] in [place], please do not present to the [facility] address. You may have one person accompany you to this appointment. You will be seen by Dr. Samantha Brink's PA-C who saw you while hospitalized.) Diet: Heart Healthy Addtl Attending Provider Instructions: You presented to the hospital following a ground-level fall. You were found to have a laceration of your scalp (that was closed with america) and a nonsurgical lumbar fracture. The scalp, please keep the area clean with soap and water. Do not pick at any scabs that develop. Follow-up with your family practitioner for removal of america within approximately 1 week. Your tetanus vaccine was updated prior to discharge to home. You were seen by a credit specialist and the back fracture is nonsurgical. You should wear the brace that has been prescribed at all times with the exception of bathing. No lifting more than 5 pounds. Ambulate/walk as tolerated. Follow-up in the office in about 2 weeks. take pain medication as prescribed-- note that this can cause sedation, can be habit forming, can cause constipation. Can use calcitonin nasal spray to help with pain in the back. Use 1 spray daily. Alternate between nostrils. Talk with PCP regarding updated DEXA scan (to assess integrity of bones) No driving until cleared by Orthopedics Follow-up with your PCP within 7 to 10 days. Return to the emergency department for any new or worsening symptoms. Pending Studies at Discharge: No Stand-Alone Forms: [employer], Opioid Pain Management, Smoking C essation Medications and DC Order Prescriptions: Continued atorvastatin 10 mg tablet See Rx Instructions .ROUTE .COMPLEX Qty: 90 RF: 3 pantoprazole 40 mg tablet,delayed release (DR/EC) See Rx Instructions .ROUTE .COMPLEX Qty: 90 RF: 3 propranolol 80 mg capsule,extended release 24 hr See Rx Instructions .ROUTE .COMPLEX Qty: 90 RF: 3 acetaminophen 500 mg capsule 500 mg PO QID PRN (Reason: Pain) RF: 0 cholecalciferol (vitamin D3) [Vitamin D3] 25 mcg (1,000 unit) tablet,chewable 25 mcg PO QAM RF: 0 vitamin B complex Tablet 1 tab PO QAM RF: 0 fluticasone propionate 50 mcg/actuation spray,suspension 1 - 2 spray intranasal DAILY PRN (Reason: Allergy Symptoms) RF: 0 aspirin 81 mg Tablet,Chewable 81 mg PO QAM RF: 0 magnesium oxide 400 mg Capsule 400 mg PO HS RF: 0 Discontinued Tenivac (PF) 5-2 Lf unit/0.5 mL syringe 0.5 ml IM ONCE Qty: 0.5 RF: 0 sulfamethoxazole-trimethoprim [Bactrim DS] 800-160 mg tablet 1 tab PO BID 5 Days Qty: 10 RF: 0 No Action lisinopril 20 mg tablet 20 mg PO QAM RF: 0 Discharge Orders: Discharge Order (Routine); Ordered 06/28/21 Ordered By: Neda Ortega/Other Patient Handouts: Preventing Deep Vein Thrombosis Admission Data Admit Date/Time: 06/27/21 17:02 Attending Provider: Gab Del Rio Admit Provider: Liza Rodriguez Primary Care Provider: Rigoberto Joyce Other Providers: Awais Emery ; Palmer Singh Other Interventions: Discharge Summary Assessment (RN) Last Done: 06/28/21 16:01 Supervising Physician Co-Signing Physician Notes Patient seen and examined by bedside. During face to face encounter, obtained hospital course summary and performed a physical exam. Discussed discharge plan with CRISTIANE Ron and patient. Answered all questions. Reviewed above note and agree with it. Patient will be in a n orthotic brace for L1 vertebral burst fracture Coding Level of Care Code 33096 OBS Care - Discharge Diagnoses Fall W19.XXXA L1 vertebral fracture S32.011A Encounter type: initial encounter Fracture morphology: burst- stable Fracture type: closed L5 vertebral fracture S32.058A Encounter type: initial encounter Fracture morphology: other fracture Fracture type: closed Laceration of head S01.91XA Osteopenia after menopause M85.80 Hypertension I10 PSVT (paroxysmal supraventricular tachycardia) I47.1 Thyroid nodule E04.1 GERD (gastroesophageal reflux disease) K21.9 Hyperlipidemia E78.5
--- NOTE | 2021-07-04 07:25 | Coding Query ---
BMI To promote full compliance with coding requirements relating to patient care, physician participation is requested in all cases of order dispatcher uncertainty. Please assist us with the question(s) below: Please place an X within the parenthesis (x). If other, please document: BMI 19.8 was documented in this record for this patient. If the BMI is significant, please check the box that provides a more specific associated diagnosis: ( ) Overweight/Obese ( ) Obesity ( ) Morbid obesity ( ) Obesity Hypoventilation Syndrome (OHS) ( ) Heathy weight, not significant ( x) Underweight/Thin ( ) Other, please specify Thank you Tosin GIBSON
== END 2021-06-28 17:38 | disposition home or self-care (01) | DRG 543 ==
LOC: ED 12:42 → 3N 17:02 → OBSVTOIN 17:02 → SUATTDRO 17:02 → INTOOBSV 17:02 → 3N 17:32